=== PATIENT | male | born 1940 | race Caucasian/White ===

== ENCOUNTER 2017-03-27 13:52 | Inpatient (IN) | payer SELFPAY ==
[~2017-03-27] VITALS: Ht 185.4 cm; Wt 77.1 kg
[2017-03-27 14:56] LABS: Basophils # (auto) 0.1 uL; Basophils % (auto) 0.7 % (0.0-2.0); CONDITION Y; Eosinophils # (auto) 0 uL; Eosinophils % (auto) 0.3 % (0.0-7.0); Hematocrit 44.5 % (41.0-53.0); Hemoglobin 15.3 g/dL (13.5-17.5); Lymphocytes # (auto) 1.8 uL; Lymphocytes % (auto) 21.8 % (10.0-50.0); Mean Corpuscular Hgb Conc. 34.5 g/dL (32.0-36.0); Mean Corpuscular Volume 90.1 fL (80.0-100.0); Mean Platelet Volume 10.7 fL (7.4-10.4); Monocytes # (auto) 0.9 uL; Monocytes % (auto) 10.1 % (0.0-12.0); Neutrophils # (auto) 5.7 uL; Neutrophils % (auto) 67.1 % (37.0-80.0); Platelet Count (auto) 237 10^3/uL (140-450); Red Cell Distribution Width 13.6 % (11.6-16.0); White Blood Cell 8.5 10^3/uL (4.4-10.8)
[2017-03-27] MEDS ORDERED: LORazepam 0.5 MG TAB ONE (15:08)
[2017-03-27] MEDS ORDERED: LORazepam 0.5 MG TAB PO ONE (15:15)
[2017-03-27 15:21] LABS: Albumin 3.8 g/dL (3.4-5.0); Alkaline Phosphatase 86 U/L (45-117); Anion Gap 9 (5-15); Aspartate Aminotransferase 52 U/L (15-37); BUN/Creatinine Ratio 12.8; Bilirubin, Total 0.5 mg/dL (0.2-1.0); Blood Urea Nitrogen 22 mg/dL (7-18); Calcium 9.1 mg/dL (8.5-10.1); Carbon Dioxide 21 mmol/L (21-32); Chloride 108 mmol/L (98-107); GFR African American 50 mL/min; GFR Non-African American 42 mL/min; Glucose 146 mg/dL (74-106); Magnesium 1.6 mg/dL (1.6-2.6); Potassium 4.4 mmol/L (3.5-5.1); Sodium 138 mmol/L (136-145); Total Protein 7.5 g/dL (6.4-8.2)
[2017-03-27] MEDS ORDERED: DEXTROSE (50%) 50ML SYRG IV PRN (17:30)
[2017-03-27] MEDS ORDERED: TEMAZEPAM 15 MG CAP PO PRN (17:30)
[2017-03-27] MEDS ORDERED: LACTULOSE 20Gm/30ML SOLN PO PRN (17:30)
[2017-03-27] MEDS ORDERED: HYDROcodone-ACET 5/325MG TAB PO PRN (17:30)
[2017-03-27] MEDS ORDERED: MORPHINE SULF INJ 2 MG/ML SYRINGE 1ML IV PRN (17:30)
[2017-03-27] MEDS ORDERED: ACETAMINOPHEN 500 MG TAB PO PRN (17:30)
[2017-03-27] MEDS ORDERED: LORazepam 0.5 MG TAB PO PRN (17:30)
[2017-03-27] MEDS ORDERED: ONDANSETRON HCL 4 MG/2 ML VIAL IV PRN (17:30)
[2017-03-27 18:27] LABS: Cholesterol 153 mg/dL (< 200); HDL Cholesterol 56 mg/dL (40-59); LDL Cholesterol 83 mg/dL (< 100); Triglycerides 97 mg/dL (< 150)
[2017-03-27 19:00] LABS: Temperature: 21.5 C (20.0-25.0)
[2017-03-27 20:27] VITALS: BP 132/60
[2017-03-27] MEDS ORDERED: InsuLIN REG 1unit/0.01ml Soln (100units/ml) SC SCH (22:00)
[2017-03-27] MEDS ORDERED: ACCU-CHEK COMFORT CURVE STRIP VI SCH (22:00)
[2017-03-28] MEDS ORDERED: ASPirin-EC 81 mg tab PO SCH (10:00)
== END 2017-03-27 21:32 | disposition left against medical advice (07) | DRG 66 ==
LOC: ER 13:52 → EDBD 13:52 → OVERFLOW 13:53 → EAST 20:48
PROVIDERS: ADMIT Nurse Practitioner Family; ATTEND Nurse Practitioner Family
DX: I63.9 Cerebral infarction, unspecified (principal); E11.9 Type 2 diabetes mellitus without complications; F17.200 Nicotine dependence, unspecified, uncomplicated; F41.9 Anxiety disorder, unspecified; G25.3 Myoclonus; W19.XXXA Unspecified fall, initial encounter; G25.5 Other chorea; S06.9X0A Unspecified intracranial injury without loss of consciousness, initial encounter; X58.XXXA Exposure to other specified factors, initial encounter; Z79.84 Long term (current) use of oral hypoglycemic drugs; Y93.89 Activity, other specified; Y92.89 Other specified places as the place of occurrence of the external cause; Y99.8 Other external cause status
CPT/HCPCS: 36415; 70450; 71010; 80053; 80061; 82607; 82746; 83036; 83735; 84443; 84484; 85025; 85652; 93005